=== PATIENT | male | born 1995 | race Caucasian/White ===

== ENCOUNTER → 2017-11-12 | Outpatient (REF) | payer OTHER | LOC: M LAB REF 19:25 | DX: J02.9 Acute pharyngitis, unspecified (principal) ==

== ENCOUNTER 2021-06-27 08:40 | Emergency (ER) | payer BC, OTHER, SELFPAY ==
[~2021-06-27] VITALS: Ht 167.6 cm; Wt 63.6 kg
--- OUTSIDE RECORDS SUMMARY | 2021-06-27 08:43 | CCD ---
Author Author [facility] Organization [facility] Address Unknown Phone Unavailable Support Name Relationship Address Phone [facility] Next Of Kin [address] [place] [address] DENIA MILES Next Of Kin [address] [place] [address] Denia Miles [facility] [address] [facility] [address] [place] [address] Re-disclosure Warning The records that you are about to access may contain information from federally-assisted alcohol or drug abuse programs. If such information is present, then the following federally mandated warning applies: This information has been disclosed to you from records protected by federal confidentiality rules (42 CFR part 2). The federal rules prohibit you from making any further disclosure of this information unless further disclosure is expressly permitted by the written consent of the person to whom it pertains or as otherwise permitted by 42 CFR part 2. A general authorization for the release of medical or other information is NOT sufficient for this purpose. The Federal rules restrict any use of the information to criminally investigate or prosecute any alcohol or drug abuse patient.The records that you are about to access may contain highly sensitive health information, the redisclosure of which is protected by Article 27-F of the [facility] Public Health law. If you continue you may have access to information: Regarding HIV / AIDS; Provided by facilities licensed or operated by the [facility] Office of Mental Health; or Provided by the [facility] Office for People With Developmental Disabilities. If such information is present, then the following [facility] mandated warning applies: This information has been disclosed to you from confidential records which are protected by state law. State law prohibits you from making any further disclosure of this information without the specific written consent of the person to whom it pertains, or as otherwise permitted by law. Any unauthorized further disclosure in violation of state law may result in a fine or prison sentence or both. A general authorization for the release of medical or other information is NOT sufficient authorization for further disc losure. Family History Family Member Name Family Member Gender Family Member Status Date o f Status Description Data Source(s) Unknown Unknown Problem [facility] ([facility]) Encounters Encounter Providers Location Date Indications Data Source(s ) Outpatient 11/18/2020 08:56:55 AM EST [facility]) Immunizations Vaccine Date Status Description Data Source(s) COVID-19 VACCINE [place] 12/17/2020 12:00:00 AM EDT completed [facility] Vaccine Series Complete: YESThis Data wa s Submitted to [facility] Via [employer]. Medications No Information Insurance Providers Payer name Policy type / Coverage type Policy ID Covered republican ID Covered republican's relationship to reyes Policy Reyes Plan Information [employer] [id number] Self [id number] ANSI-Commercial [id number] [facility] [id number] ANSI-Commercial [id number] [facility] Commercial [id number] Family Dependent [id number] [facility] Commercial [id number] Family Dependent [id number] ANSI-Commercial [id number] Problems, Conditions, and Diagnoses No Information Surgeries/Procedures No Information Results ID Date Data Source [id number] 11/18/2020 12:00:00 AM EST [facility] Name Value Range Interpretation Code Description Data Christy rce(s) Supporting Document(s) SARS-CoV2 Rapid Antigen Positive [facility] This lab was reported by [facility]. ID Date Data Source [id number] 11/12/2020 12:00:00 AM EST [facility] Name Value Range Interpretation Code Description Data Christy rce(s) Supporting Document(s) SARS-CoV-2 (COVID-19) RNA [Presence] in Nasopharynx by [facility]ENC[facility] with probe detection Positive [facility] This lab was ordered by [facility] and reported by [facility]. Procedure Social History No Information
[2021-06-27] MEDS ORDERED: MORPHINE 4 MG/ML 1ML VIAL/SYRINGE (J2270) IV ONE (09:10)
--- NOTE | 2021-06-27 09:12 | REP ---
INDICATION: CHEST PAIN COMPARISON: None. TECHNIQUE: Portable AP view of the chest FINDINGS: The mediastinum and cardiac silhouette are within normal limits for portable technique. The lung xavier are clear without acute consolidation, effusion, or pneumothorax. Skeletal structures are intact. IMPRESSION: No acute cardiopulmonary process appreciated. <Electronically signed by Mckinley Nowak > 06/27/21 0959
--- OUTSIDE RECORDS SUMMARY | 2021-06-27 09:12 | CCD ---
Author Author [facility] Organization [facility] Address Unknown Phone Unavailable Support Name Relationship Address Phone [facility] Next Of Kin [address] [place] [address] DENIA MILES Next Of Kin [address] [place] [address] Denia Miles [facility] [address] [facility] [address] [place] [address] Re-disclosure Warning The records that you are [...] is protected by Article 27-F of the [facility] Public Health law. If you continue you may have access to information: Regarding HIV / AIDS; Provided by facilities licensed or operated by the [facility] Office of Mental Health; or Provided by the [facility] Office for People With Developmental Disabilities. If such information is present, then the following [facility] mandated warning applies: This information has been [...] law may result in a fine or group home sentence or both. A general authorization for [...] ) Outpatient 11/18/2020 08:56:55 AM EST [facility] ([facility]) Immunizations Vaccine Date Status Description Data Source(s) COVID-19 VACCINE [place] 12/17/2020 12:00:00 AM EDT completed [facility] Vaccine Series Complete: YESThis Data wa s Submitted to [facility] Via [employer] Medications No Information Insurance Providers Payer name Policy type / Coverage type Policy ID Covered republican ID Covered republican's relationship to reyes Policy Reyes Plan Information [employer] [id number] Self [id number] [facility] [id number] ANSI-Commercial [id number] ANSI-Commercial [id number] ANSI-Commercial [id number] [facility] [employer] [id number] Family Dependent [id number] [employer] [place] PPO [id number] SP [id number] [facility] [employer] [id number] Family Dependent [id number] Problems, Conditions, and Diagnoses No Information Surgeries/Procedures No Information Results ID Date Data Source [id number] 11/18/2020 12:00:00 AM EST [facility] Name Value Range Interpretation Code Description Data Christy rce(s) Supporting Document(s) SARS-CoV2 Rapid Antigen Positive [facility] This lab was reported by [facility] re. ID Date Data Source [id number] 11/12/2020 12:00:00 AM EST [facility] Name Value Range Interpretation Code Description Data Christy rce(s) Supporting Document(s) SARS-CoV-2 (COVID-19) RNA [Presence] in Nasopharynx by VALENCIA with probe detection Positive [facility] This lab was ordered by [facility] and reported by [facility]. Procedure Social History No Information
--- NOTE | 2021-06-27 09:31 | REP ---
INDICATION: fall COMPARISON: None. TECHNIQUE: Axial noncontrast images from the skull base to the vertex with coronal reformations. This CT examination was performed using the following dose reduction techniques: Automated exposure control, adjustment of mA and/or kv according to the patient's size, and use of iterative reconstruction technique. FINDINGS: The ventricles, sulci, and cisterns are normal in position and appearance. Mccain-white differentiation is maintained. No acute intracranial hemorrhage, mass/mass effect, pathology or trauma/injury. No evidence for acute infarction. No extra-axial fluid collection. Calvarium is intact. Paranasal sinuses and mastoid air cells are clear. IMPRESSION: Normal noncontrast head CT. No evidence for acute intracranial pathology or trauma/injury. <Electronically signed by Mckinley Nowak > 06/27/21 0903
--- NOTE | 2021-06-27 09:32 | REP ---
INDICATION: fall COMPARISON: None. TECHNIQUE: Axial noncontrast images from the skull base to the thoracic inlet with coronal and sagittal re-formations This CT examination was performed using the following dose reduction techniques: Automated exposure control, adjustment of mA and/or kv according to the patient's size, and use of iterative reconstruction technique. FINDINGS: Normal alignment is maintained. Cervical vertebral bodies including transverse processes and spinous processes are intact and there is no evidence for acute fracture / compression injury or subluxation. Spinal canal is patent. Posterior elements are intact. Paravertebral soft tissues are normal. IMPRESSION: No evidence for acute pathology or trauma/injury. <Electronically signed by Mckinley Nowak > 06/27/21 0969
[2021-06-27 10:10] LABS: HEMOGLOBIN 15.4 g/dl (13.5-17.5); MEAN CORPUSCULAR HEMOGLOBIN 31.2 pg (27.0-33.0); MEAN CORPUSCULAR HGB CONC 35.8 g/dl (32.0-36.5); PLATELET COUNT, AUTOMATED 178 10^3/uL (150-450); RED BLOOD COUNT 4.94 10^6/uL (4.30-6.10); WHITE BLOOD COUNT 6.6 10^3/uL (4.0-10.0)
[2021-06-27] MEDS ORDERED: KETOROLAC 30 MG/ML 1ML VIAL IV ONE (10:40)
[2021-06-27] MEDS ORDERED: NS 1,000 ML IV ONE (10:40)
--- NOTE | 2021-06-27 10:47 | REPVR ---
PROCEDURE INFORMATION: Exam: CT Lumbar Spine Without Contrast Exam date and time: 06/27/2021 9:06 AM Age: 26 years old Clinical indication: Injury or trauma; Fall; Work related; Blunt trauma (contusions or hematomas) TECHNIQUE: Imaging protocol: Computed tomography images of the lumbar spine without contrast. Radiation optimization: All CT scans at this facility use at least one of these dose optimization techniques: automated exposure control; mA and/or kV adjustment per patient size (includes targeted exams where dose is matched to clinical indication); or iterative reconstruction. COMPARISON: No relevant prior studies available. FINDINGS: Vertebrae: No acute fracture. Normal alignment. Discs/Spinal canal/Neural foramina: No significant disc protrusion. No severe spinal canal stenosis. No significant neural foraminal narrowing. Soft tissues: Unremarkable. IMPRESSION: No evidence of acute fracture. Electronically signed by: Tami Marinelli On 06/27/2021 10:47:39 AM
[2021-06-27 10:48] LABS: BLOOD UREA NITROGEN 14 MG/DL (7-18); CALCIUM LEVEL 8.6 MG/DL (8.5-10.1); CARBON DIOXIDE LEVEL 28 MEQ/L (21-32); CHLORIDE LEVEL 107 MEQ/L (98-107); CREATININE FOR GFR 1.02 MG/DL (0.70-1.30); ETHYL ALCOHOL (ETHANOL) < 0.003 % (0.000-0.010); GLOMERULAR FILTRATION RATE > 60.0 (>60); GLUCOSE, FASTING 92 MG/DL (70-100); POTASSIUM SERUM 3.8 MEQ/L (3.5-5.1); SODIUM LEVEL 139 MEQ/L (136-145)
[2021-06-27] MEDS ORDERED: KETO10TAB PO (13:43)
[2021-06-27 14:12] VITALS: BP 103/49
--- NOTE | 2021-06-27 18:47 | ECGEPIP ---
[facility] - ED Test Date: 2021-06-27 Pat Name: RALEIGH MILES Department: Room: - Gender: Male Supervisor Kennel: GIOVANNA : 1995 Requested By: DIPTI Wilson Order Number: [id number] Reading MD: Kaiden Chang Measurements Intervals [place] Rate: 71 P: 11 CO: 132 QRS: -12 QRSD: 98 T: 43 QT: 372 QTc: 404 Interpretive Statements Normal sinus rhythm POOR R WAVE PROGRESSION NO PRIORS FOR COMPARISON Electronically Signed on 06-27-2021 18:47:55 EDT by Kaiden Chang
== END 2021-06-27 14:31 | disposition home or self-care (01) ==
LOC: M ED 08:40
DX: R55 Syncope and collapse (principal)
CPT/HCPCS: 70450; 71045; 72125; 72131; 80048; 82077; 85027; 93005; 93041; 94760; 96361; 96374; 96375; 99285; J1885; J2270